=== PATIENT | female | born 1995 | race Asian ===

== ENCOUNTER 2017-09-09 15:53 | Emergency (ER) | payer MEDICAID, OTHER ==
[~2017-09-09] VITALS: Ht 152.4 cm; Wt 62.8 kg
[2017-09-09 15:58] VITALS: BP 106/74
[2017-09-09] MEDS ORDERED: ESCI20TA10 PO (17:45)
[2017-09-09] MEDS ORDERED: KETOROLAC 30 MG/1 ML ONE (17:47)
[2017-09-09] MEDS ORDERED: CYCLOBENZAPRINE 10 MG TABLET ONE (17:47)
[2017-09-09] MEDS ORDERED: CYCLOBENZAPRINE 10 MG TABLET PO ONE (18:00)
[2017-09-09] MEDS ORDERED: KETOROLAC 60 MG/2 ML IM ONE (18:00)
== END 2017-09-09 19:12 | disposition home or self-care (01) ==
LOC: ED 18:24
DX: G44.219 Episodic tension-type headache, not intractable (principal)
CPT/HCPCS: 70450; 96372; 99284; J1885

== ENCOUNTER 2017-09-13 22:37 | Emergency (ER) | payer MEDICAID ==
[~2017-09-13] VITALS: Ht 152.4 cm; Wt 62.1 kg
[~2017-09-13 22:37] MED LIST: ESCI20TA10 PO
[2017-09-13] MEDS ORDERED: KETOROLAC 30 MG/1 ML IVPush ONE (23:00)
[2017-09-13] MEDS ORDERED: PROCHLORPERAZINE 5 MG/ML, 2ML IVPush ONE (23:00)
[2017-09-13] MEDS ORDERED: DIPHENHYDRAMINE 50 MG/ML, 1ML IVPush ONE (23:00)
[2017-09-13] MEDS ORDERED: KETOROLAC 30 MG/1 ML ONE (23:13)
[2017-09-13] MEDS ORDERED: DIPHENHYDRAMINE 50 MG/ML, 1ML ONE (23:13)
[2017-09-13] MEDS ORDERED: PROCHLORPERAZINE 5 MG/ML, 2ML ONE (23:13)
[2017-09-14 00:40] VITALS: BP 117/80
== END 2017-09-14 00:43 | disposition home or self-care (01) ==
LOC: ED 23:59
DX: G44.319 Acute post-traumatic headache, not intractable (principal); F17.200 Nicotine dependence, unspecified, uncomplicated
CPT/HCPCS: 96374; 96375; 99284; J0780; J1200; J1885

== ENCOUNTER 2018-03-14 23:05 | Emergency (ER) | payer MEDICAID ==
[~2018-03-14] VITALS: Ht 152.4 cm; Wt 61.1 kg
[2018-03-14] MEDS ORDERED: ONDANSETRON ODT 4 MG ONE (23:53)
[2018-03-14] MEDS ORDERED: MECLIZINE CHEWABLE 25 MG TAB ONE (23:53)
[2018-03-14 23:56] LABS: BASOPHILS # (AUTO) 0.04 x10^3/uL (0-0.1); BASOPHILS % (AUTO) 1 % (0-1); EOSINOPHILS # (AUTO) 0.27 x10^3/uL (0-0.4); EOSINOPHILS % (AUTO) 3 % (1-7); LYMPHOCYTES # (AUTO) 2.77 x10^3/uL (1-3.4); LYMPHOCYTES % (AUTO) 31 % (22-44); MD NO; MEAN CORPUSCULAR HGB CONC 33.1 g/dL (32.4-35.8); MEAN CORPUSCULAR VOLUME 78.5 fL (80-100); MONOCYTES # (AUTO) 0.48 x10^3/uL (0.2-0.8); MONOCYTES % (AUTO) 5 % (2-9); NEUTROPHILS # (AUTO) 5.41 x10^3/uL (1.8-6.8); NEUTROPHILS % (AUTO) 60 % (42-75); PLATELET COUNT 487 x10^3/uL (130-400); RED CELL DISTRIBUTION WIDTH 12.9 % (9.6-15.2)
[2018-03-14 23:59] VITALS: BP 115/77
[2018-03-15] MEDS ORDERED: ONDANSETRON ODT 4 MG PO ONE
[2018-03-15] MEDS ORDERED: MECLIZINE CHEWABLE 25 MG TAB PO ONE
[2018-03-15 00:05] LABS: ALANINE AMINOTRANSFERASE 20 U/L (12-78); ALBUMIN 3.9 g/dL (3.4-5.0); ANION GAP 8 mmol/L (5-15); CHLORIDE 110 mmol/L (98-107)
[2018-03-15 00:09] LABS: ALKALINE PHOSPHATASE 80 U/L (45-117); BILIRUBIN,TOTAL 0.4 mg/dL (0.2-1.0)
--- NOTE | 2018-03-15 00:55 | NUR ---
PT REPORTS FEELING BETTER AFTER MEDS, PA IN FOR RECHECK
== END 2018-03-15 00:57 | disposition home or self-care (01) ==
LOC: ED 23:55
DX: R42 Dizziness and giddiness (principal); F17.200 Nicotine dependence, unspecified, uncomplicated
CPT/HCPCS: 36415; 71045; 80053; 84703; 85025; 93005; 99284; Q0162

== ENCOUNTER 2019-06-28 17:12 | Emergency (ER) | payer MEDICAID ==
[~2019-06-28] VITALS: Ht 152.4 cm; Wt 59.8 kg
--- NOTE | 2019-06-28 17:15 | NUR ---
Pt not in lobby x 1 when called to triage.
--- NOTE | 2019-06-28 17:53 | NUR ---
ICE PACK PROVIDED TO PT. PT STATES SHE'S STILL ABLE TO AMBULATE ON L LEG. SWELLING NOTED AROUND L ANKLE.
[2019-06-28 19:10] VITALS: BP 142/100
--- NOTE | 2019-06-28 19:10 | NUR ---
CAROLINE WRAP APPLIED TO PT'S R ANKLE BY SEISMIC SURVEY ASSISTANT, CMS INTACT. PT DECLINED CRUTCHES. D/C INSTRUCTIONS, MEDS & F/U APPT RV'WD WITH PT. RX GIVEN X1. PT ASSISTED OUT OF ED VIA WC. STATES FAMILY WILL PICK HER UP.
== END 2019-06-28 19:18 | disposition home or self-care (01) ==
LOC: ED 17:33
DX: S93.491A Sprain of other ligament of right ankle, initial encounter (principal); X50.1XXA Overexertion from prolonged static or awkward postures, initial encounter; Y93.89 Activity, other specified; Y92.89 Other specified places as the place of occurrence of the external cause; Y99.0 Civilian activity done for income or pay
CPT/HCPCS: 99283